=== PATIENT | female | born 1965 | race Caucasian/White ===

== ENCOUNTER → 2016-09-11 | Outpatient (CLI) | payer MEDICARE, OTHER ==
[2016-09-11 08:17] LABS: HEMOGLOBIN 16.7 gm/dl (12.3-15.3); RED BLOOD COUNT 5.32 M/UL (4.00-5.10); WHITE BLOOD COUNT 10.2 K/UL (4.5-11.0)
[2016-09-11 08:35] LABS: BUN/CREATININE RATIO 14 (0-10)
== END ==
LOC: LAB 07:22
PROVIDERS: Nurse Practitioner Family
DX: R10.84 Generalized abdominal pain (principal); J30.9 Allergic rhinitis, unspecified; R14.0 Abdominal distension (gaseous); I10 Essential (primary) hypertension; E66.9 Obesity, unspecified; R13.10 Dysphagia, unspecified; R06.00 Dyspnea, unspecified; R53.83 Other fatigue
CPT/HCPCS: 36415; 80053; 84439; 84443; 85025

== ENCOUNTER 2016-10-09 04:10 | Emergency (ER) | payer MEDICARE, OTHER ==
[2016-10-09 09:02] LABS: HEMOGLOBIN 18.1 gm/dl (12.3-15.3); RED BLOOD COUNT 5.77 M/UL (4.00-5.10); WHITE BLOOD COUNT 15.6 K/UL (4.5-11.0)
[2016-10-09 09:25] LABS: BUN/CREATININE RATIO 12 (0-10)
== END 2016-10-09 13:30 | disposition home or self-care (01) ==
LOC: ER1 04:10
PROVIDERS: Physician Assistant
DX: R10.32 Left lower quadrant pain (principal); R10.13 Epigastric pain; R11.2 Nausea with vomiting, unspecified; I10 Essential (primary) hypertension; F17.200 Nicotine dependence, unspecified, uncomplicated; Z88.0 Allergy status to penicillin; Z88.2 Allergy status to sulfonamides
CPT/HCPCS: 36415; 71010; 76830; 80053; 81001; 82150; 82550; 82553; 83690; 83874; 84484; 85025; 93005; 96361; 96374; 96375; 99284; C9113; J2270; J2405; J7050; Q9962

== ENCOUNTER → 2020-10-09 | Outpatient (CLI) | payer MEDICARE, OTHER ==
[~2020-10-09] MED LIST: AZELASTINE137 MCG/0.; CLONAZEPAM1 MG PO; GABAPENTIN100 MG PO; GEODON40 MG PO; K-DUR TAB 10 M10 MEQ PO; PEPCID40 MG PO; PROAIR HFA8.5 GM INH; SINGULAIR10 MG PO; STOOL SOFTENER250 MG PO; TOPROL XL 25 MG25 MG PO; TRAZODONE HCL300 MG PO; WELLBUTRIN SR150 MG PO; ZYRTEC10 M3 PO
== END ==
LOC: HEART 5 09:01
DX: Z87.09 Personal history of other diseases of the respiratory system (principal); F17.210 Nicotine dependence, cigarettes, uncomplicated
CPT/HCPCS: 94010

== ENCOUNTER → 2021-07-02 | Day surgery (SDC) | payer MEDICARE, OTHER ==
[~2021-07-02] MED LIST changes: +ASPIRIN81 MG PO; +GEODON60 MG PO; +LINZESS290 MCG PO; +MIRALAX17 GM PO; +PANTOPRAZOLE SO20 MG PO; +TRAZODONE HCL100 MG PO; +WELLBUTRIN XL300 M1 PO
== END | disposition home or self-care (01) ==
LOC: OR 06:37
DX: K59.09 Other constipation (principal); K57.30 Diverticulosis of large intestine without perforation or abscess without bleeding; K64.0 First degree hemorrhoids; K31.84 Gastroparesis; I10 Essential (primary) hypertension; E66.8 Other obesity; K21.00 Gastro-esophageal reflux disease with esophagitis, without bleeding; Z86.010 Personal history of colon polyps; Z88.0 Allergy status to penicillin; Z88.2 Allergy status to sulfonamides; Z72.0 Tobacco use; Z79.82 Long term (current) use of aspirin; Z20.822 Contact with and (suspected) exposure to COVID-19
CPT/HCPCS: J2001; J2704; J7040

== ENCOUNTER 2021-07-22 23:02 | Emergency (ER) | payer MEDICARE, OTHER ==
[2021-07-22 23:32] LABS: HEMOGLOBIN 17.7 gm/dl (12.3-15.3); RED BLOOD COUNT 5.47 M/UL (4.00-5.10); WHITE BLOOD COUNT 12.3 K/UL (4.5-11.0)
[2021-07-23 00:10] LABS: BUN/CREATININE RATIO 19 (0-10)
[2021-07-23] MEDS ORDERED: PHENERGAN 25 MG25 M1 PO (03:09)
== END 2021-07-23 03:36 | disposition home or self-care (01) ==
LOC: ER1 23:02
PROVIDERS: Family Medicine
DX: R10.9 Unspecified abdominal pain (principal); R11.2 Nausea with vomiting, unspecified; F17.200 Nicotine dependence, unspecified, uncomplicated; Z87.19 Personal history of other diseases of the digestive system; Z88.0 Allergy status to penicillin; Z88.2 Allergy status to sulfonamides
CPT/HCPCS: 80053; 81001; 83690; 85025; 96374; 99284; Q9967

== ENCOUNTER → 2021-09-18 | Outpatient (CLI) | payer MEDICARE, OTHER ==
[~2021-09-18] MED LIST changes: +PHENERGAN 25 MG25 M1 PO
[2021-09-18 11:36] LABS: BORDETELLA PARAPERTUSSIS Not Detected (Not Detectd); BORDETELLA PERTUSSIS Not Detected (Not Detectd); CHLAMYDIA PNEUMONIAE Not Detected (Not Detectd); CORONAVIRUS HKU1 Not Detected (Not Detectd); CORONAVIRUS NL63 Not Detected (Not Detectd); CORONAVIRUS OC43 Not Detected (Not Detectd); CORONOAVIRUS 229E Not Detected (Not Detectd); HUMAN METAPNEUMOVIRUS Not Detected (Not Detectd); INFLUENZA A Not Detected (Not Detectd); INFLUENZA B Not Detected (Not Detectd); MYCOPLASMA PNEUMONIAE Not Detected (Not Detectd); PARAINFLUENZA VIRUS 1 Not Detected (Not Detectd); PARAINFLUENZA VIRUS 2 Not Detected (Not Detectd); PARAINFLUENZA VIRUS 3 Not Detected (Not Detectd); PARAINFLUENZA VIRUS 4 Not Detected (Not Detectd); RESPIRATORY SYNCYTIAL VIRUS Not Detected (Not Detectd)
[2021-09-18 13:07] LABS: HUMAN RHINOVIRUS/ENTEROVIRUS DETECTED (Not Detectd); SARS-CoV-2 NOT DETECTED (Not Detectd)
== END ==
LOC: LAB 11:20
PROVIDERS: Physician Assistant
DX: J06.9 Acute upper respiratory infection, unspecified (principal); R50.9 Fever, unspecified; B34.9 Viral infection, unspecified; Z20.822 Contact with and (suspected) exposure to COVID-19
CPT/HCPCS: 87633